=== PATIENT | male | born 1985 | race Caucasian/White ===

== ENCOUNTER 2016-10-05 01:51 | Emergency (ER) | payer MEDICAID ==
[~2016-10-05] VITALS: Ht 175.3 cm; Wt 96.0 kg
[~2016-10-05 01:51] MED LIST: ESCI10TA PO; OLAN15TA2 PO
[2016-10-05] MEDS ORDERED: OMEP20 PO ×2 (01:59→09:23)
[2016-10-05] MEDS ORDERED: ARIP15TA3 PO ×2 (01:59→09:23)
[2016-10-05 03:20] VITALS: BP 144/96
[2016-10-06] MEDS ORDERED: LORA10TA7 PO (08:40)
[2016-10-06] MEDS ORDERED: DSS100 PO (08:40)
[2016-10-06] MEDS ORDERED: ARIP15TA3 PO (08:40)
== END 2016-10-05 03:22 | disposition home or self-care (01) ==
LOC: EMS 01:52
DX: J31.0 Chronic rhinitis (principal); F20.9 Schizophrenia, unspecified; F17.210 Nicotine dependence, cigarettes, uncomplicated
CPT/HCPCS: 71020; 99284

== ENCOUNTER 2016-10-05 04:40 | Inpatient (IN) | payer MEDICAID ==
[~2016-10-05] VITALS: Ht 375.9 cm; Wt 96.8 kg
[~2016-10-05 04:40] MED LIST changes: +ARIP15TA3 PO; +OMEP20 PO
[2016-10-05] MEDS ORDERED: LORazepam 1 MG TABLET PO PRN (06:45)
[2016-10-05] MEDS ORDERED: ZOLPIDEM TARTRATE 10 MG TABLET PO PRN (06:45)
[2016-10-05] MEDS ORDERED: HALOPERIDOL 5 MG TABLET PO PRN (06:45)
[2016-10-05 07:00] VITALS: BP 123/78
[2016-10-05 08:57] VITALS: BP 127/85
[2016-10-05] MEDS ORDERED: BACITRACIN 28.4 GM OINTMENT TP PRN (09:15)
[2016-10-05] MEDS ORDERED: PETROLATUM,WHITE 71 GM JELLY TP PRN (09:15)
[2016-10-05] MEDS ORDERED: ACETAMINOPHEN 325 MG TABLET PO PRN (09:15)
[2016-10-05] MEDS ORDERED: IPRATROPIUM BROMIDE 0.5 MG/2.5 ML NEB SOLUTION NEB PRN (09:15)
[2016-10-05] MEDS ORDERED: IBUPROFEN 600 MG TABLET PO PRN (09:15)
[2016-10-05] MEDS ORDERED: MAGNESIUM HYDROXIDE SUSPENSION 30 ML UDCUP PO PRN (09:15)
[2016-10-05] MEDS ORDERED: MAG HYDROX/AL HYDROX/SIMETH ES 30 ML SUSPENSION UDCUP PO PRN (09:15)
[2016-10-05] MEDS ORDERED: CloNIDine HCL 0.1 MG TABLET PO PRN (09:15)
[2016-10-05] MEDS ORDERED: LOPERAMIDE HCL 2 MG CAPSULE PO PRN (09:15)
[2016-10-05] MEDS ORDERED: ALBUTEROL SULFATE 2.5 MG/0.5 ML NEB SOLUTION NEB PRN (09:15)
[2016-10-05] MEDS ORDERED: ALBUTEROL SULFATE HFA 90 MCG/PUFF 8 GM INHALER IH PRN (09:15)
[2016-10-05] MEDS ORDERED: BENZOCAINE/MENTHOL LOZENGE MM PRN (09:15)
[2016-10-05] MEDS ORDERED: ONDANSETRON HCL 4 MG TABLET PO PRN (09:15)
[2016-10-05] MEDS ORDERED: GuaiFENesin/D-METHORPHAN/PHENYLEPH 5 ML LIQUID ORAL.SYG PO PRN (09:15)
[2016-10-05] MEDS ORDERED: ARIP15TA3 PO (09:23)
[2016-10-05] MEDS ORDERED: OMEP20 PO (09:23)
[2016-10-05] MEDS ORDERED: ARIPiprazole 15 MG TABLET PO SCH ×2 (12:45→21:00)
[2016-10-05 16:11] VITALS: BP 131/80
[2016-10-06 05:35] VITALS: BP 127/79
[2016-10-06 08:29] LABS: BASOPHILS # (AUTO) 0.04 K/uL (0.00-0.20); BASOPHILS % (AUTO) 0.5 % (0.0-2.0); EOSINOPHILS # (AUTO) 0.42 K/uL (0.00-0.70); EOSINOPHILS % (AUTO) 5.97 % (1.0-6.0); HEMATOCRIT 48.5 % (41-53); HEMOGLOBIN 15.7 g/dL (13.5-17.5); LYMPHOCYTES # (AUTO) 2.3 K/uL (1.0-4.8); LYMPHOCYTES % (AUTO) 32.5 % (22.0-44.0); MEAN CORPUSCULAR HEMOGLOBIN 26.7 pg (26.0-34.0); MEAN CORPUSCULAR HGB CONC 32.4 G/dL (31.0-37.0); MEAN CORPUSCULAR VOLUME 83 fL (80-100); MONOCYTES # (AUTO) 0.5 K/uL (0.1-1.0); MONOCYTES % (AUTO) 7.8 % (2.0-9.0); NEUTROPHILS # (AUTO) 3.7 K/uL (1.8-7.7); NEUTROPHILS % (AUTO) 53.2 % (40.0-70.0); PLATELET COUNT (AUTO) 241 K/uL (150-450); RED BLOOD CELL COUNT(AUTO) 5.87 MIL/uL (4.50-5.90); RED CELL DISTRIBUTION WIDTH 13.2 % (11.5-14.5)
[2016-10-06] MEDS: DOCUSATE SODIUM 100 MG CAPSULE PO SCH ×2 (08:31→09:00)
[2016-10-06] MEDS: LORATADINE 10 MG TABLET PO SCH ×2 (08:31→09:00)
[2016-10-06 08:37] VITALS: BP 116/81
[2016-10-06] MEDS ORDERED: ARIP15TA3 PO (08:40)
[2016-10-06] MEDS ORDERED: DSS100 PO (08:40)
[2016-10-06] MEDS ORDERED: LORA10TA7 PO (08:40)
[2016-10-06] MEDS ORDERED: OMEPRAZOLE 20 MG CAPSULE PO SCH (09:00)
[2016-10-06 09:59] LABS: ALANINE AMINOTRANSFERASE 61 U/L (12-78); ALBUMIN 3.7 g/dL (3.4-5.0); ANION GAP 7 mmol/L (8-16); ASPARTATE AMINOTRANSFERASE 22 U/L (15-37); BILIRUBIN,TOTAL 0.6 mg/dL (0.1-1.0); CALCIUM, TOTAL 8.9 mg/dL (8.8-10.5); CARBON DIOXIDE 31 mmol/L (22-29); CHLORIDE 108 mmol/L (98-107); CHOL/HDL RATIO 4.3 (4.2-7.3); CREATININE 0.66 mg/dL (0.60-1.30); GLOMERULAR FILTR. RATE CALC > 60 mL/min (>60); PHOSPHORUS 3.4 mg/dL (2.5-4.9); POTASSIUM 4.5 mmol/L (3.5-5.1); SODIUM SERUM 146 mmol/L (136-145); UREA NITROGEN, BLOOD 10 mg/dL (7-18)
[2016-10-06 10:01] LABS: THYROID STIMULATING HORMONE < 0.01 uIU/mL (0.36-3.74)
== END 2016-10-06 09:50 | disposition home or self-care (01) | DRG 750 ==
LOC: B2S 06:54 → EDSTATUS 06:57
PROVIDERS: ADMIT Psychiatry & Neurology Psychiatry; ATTEND Psychiatry & Neurology Psychiatry
DX: F25.9 Schizoaffective disorder, unspecified (principal); F32.9 Major depressive disorder, single episode, unspecified; G47.00 Insomnia, unspecified; K21.9 Gastro-esophageal reflux disease without esophagitis; Z53.29 Procedure and treatment not carried out because of patient's decision for other reasons; F17.200 Nicotine dependence, unspecified, uncomplicated; F15.90 Other stimulant use, unspecified, uncomplicated; Z71.6 Tobacco abuse counseling; Z71.51 Drug abuse counseling and surveillance of drug abuser
CPT/HCPCS: 82306; 83735; 84100; 84443

== ENCOUNTER 2017-07-19 22:01 | Emergency (ER) | payer MEDICAID ==
[~2017-07-19] VITALS: Ht 175.3 cm; Wt 95.5 kg
[~2017-07-19 22:01] MED LIST changes: +ARIP15TA2 PO; -ARIP15TA3 PO; +DSS100 PO; -ESCI10TA PO; +LORA10TA7 PO; -OLAN15TA2 PO
[2017-07-19 23:49] LABS: BASOPHILS % (AUTO) 0.7 % (0.0-2.0); EOSINOPHILS % (AUTO) 0.7 % (1.0-6.0); HEMATOCRIT 45.8 % (41-53); HEMOGLOBIN 15.6 g/dL (13.5-17.5); LYMPHOCYTES # (AUTO) 1.3 K/uL (1.0-4.8); LYMPHOCYTES % (AUTO) 9.9 % (22.0-44.0); MEAN CORPUSCULAR HEMOGLOBIN 26.8 pg (26.0-34.0); MEAN CORPUSCULAR HGB CONC 34.2 G/dL (31.0-37.0); MEAN CORPUSCULAR VOLUME 79 fL (80-100); MONOCYTES # (AUTO) 0.9 K/uL (0.1-1.0); MONOCYTES % (AUTO) 7.4 % (2.0-9.0); NEUTROPHILS # (AUTO) 10.3 K/uL (1.8-7.7); NEUTROPHILS % (AUTO) 81.3 % (40.0-70.0); PLATELET COUNT (AUTO) 379 K/uL (150-450); RED BLOOD CELL COUNT(AUTO) 5.83 MIL/uL (4.50-5.90)
[2017-07-19 23:58] LABS: AMPHET/METH SCREEN,URINE POSITIVE (NEGATIVE); BARBITURATE SCREEN, URINE NEGATIVE (NEGATIVE); BENZODIAZEPINES SCREEN,URINE NEGATIVE (NEGATIVE); CANNABINOID SCREEN,URINE NEGATIVE (NEGATIVE); COCAINE SCREEN,URINE NEGATIVE (NEGATIVE); METHADONE SCREEN, URINE NEGATIVE (NEGATIVE); OPIATE SCREEN,URINE NEGATIVE (NEGATIVE)
[2017-07-19 23:58] LABS: ANION GAP 5 mmol/L (8-16); CALCIUM, TOTAL 9.6 mg/dL (8.8-10.5); CARBON DIOXIDE 32 mmol/L (22-29); CHLORIDE 106 mmol/L (98-107); CREATININE 1.08 mg/dL (0.60-1.30); GLOMERULAR FILTR. RATE CALC > 60 mL/min (>60); GLUCOSE,RANDOM 109 mg/dL (70-110); POTASSIUM 4.5 mmol/L (3.5-5.1); SODIUM SERUM 143 mmol/L (136-145); UREA NITROGEN, BLOOD 13 mg/dL (7-18)
[2017-07-20 00:02] LABS: PHENCYCLIDINE SCREEN,URINE NEGATIVE (NEGATIVE)
[2017-07-20 00:04] LABS: ALANINE AMINOTRANSFERASE 59 U/L (12-78); ALBUMIN 4.3 g/dL (3.4-5.0); ALKALINE PHOSPHATASE 167 U/L (46-116); ASPARTATE AMINOTRANSFERASE 28 U/L (15-37); BILIRUBIN,TOTAL 0.5 mg/dL (0.1-1.0); TOTAL PROTEIN, SERUM 7.9 g/dL (6.4-8.2)
[2017-07-20 01:21] VITALS: BP 125/74
== END 2017-07-20 02:48 | disposition home or self-care (01) ==
LOC: EMS 22:09
DX: F25.9 Schizoaffective disorder, unspecified (principal); F17.210 Nicotine dependence, cigarettes, uncomplicated
CPT/HCPCS: 36415; 80053; 80307; 85025; 99285; G0480

== ENCOUNTER 2017-11-03 14:56 | Inpatient (IN) | payer MEDICAID ==
[~2017-11-03] VITALS: Ht 172.7 cm; Wt 35.6 kg
[2017-11-03] MEDS ORDERED: BENZ1TAB10 PO (15:26)
[2017-11-03 16:13] LABS: BASOPHILS % (AUTO) 0.6 % (0.0-2.0); EOSINOPHILS % (AUTO) 2.3 % (1.0-6.0); HEMATOCRIT 44.1 % (41-53); HEMOGLOBIN 15.5 g/dL (13.5-17.5); LYMPHOCYTES # (AUTO) 1.5 K/uL (1.0-4.8); LYMPHOCYTES % (AUTO) 17.3 % (22.0-44.0); MEAN CORPUSCULAR HGB CONC 35.1 G/dL (31.0-37.0); MEAN CORPUSCULAR VOLUME 80 fL (80-100); MONOCYTES # (AUTO) 0.7 K/uL (0.1-1.0); MONOCYTES % (AUTO) 7.6 % (2.0-9.0); NEUTROPHILS # (AUTO) 6.4 K/uL (1.8-7.7); NEUTROPHILS % (AUTO) 72.2 % (40.0-70.0); PLATELET COUNT (AUTO) 322 K/uL (150-450); RED BLOOD CELL COUNT(AUTO) 5.53 MIL/uL (4.50-5.90); RED CELL DISTRIBUTION WIDTH 13.1 % (11.5-14.5)
[2017-11-03 16:20] LABS: ANION GAP 6 mmol/L (8-16); CALCIUM, TOTAL 8.4 mg/dL (8.8-10.5); CARBON DIOXIDE 32 mmol/L (22-29); CHLORIDE 105 mmol/L (98-107); CREATININE 0.89 mg/dL (0.60-1.30); GLOMERULAR FILTR. RATE CALC > 60 mL/min (>60); GLUCOSE,RANDOM 77 mg/dL (70-110); POTASSIUM 3.5 mmol/L (3.5-5.1); SODIUM SERUM 143 mmol/L (136-145); UREA NITROGEN, BLOOD 12 mg/dL (7-18)
[2017-11-03 16:27] LABS: ALANINE AMINOTRANSFERASE 47 U/L (12-78); ALBUMIN 4.2 g/dL (3.4-5.0); ALKALINE PHOSPHATASE 137 U/L (46-116); ASPARTATE AMINOTRANSFERASE 22 U/L (15-37); BILIRUBIN,TOTAL 0.9 mg/dL (0.1-1.0); TOTAL PROTEIN, SERUM 7.5 g/dL (6.4-8.2)
[2017-11-03 18:40] LABS: AMPHET/METH SCREEN,URINE POSITIVE (NEGATIVE); BARBITURATE SCREEN, URINE NEGATIVE (NEGATIVE); BENZODIAZEPINES SCREEN,URINE NEGATIVE (NEGATIVE); CANNABINOID SCREEN,URINE NEGATIVE (NEGATIVE); COCAINE SCREEN,URINE NEGATIVE (NEGATIVE); METHADONE SCREEN, URINE NEGATIVE (NEGATIVE); OPIATE SCREEN,URINE NEGATIVE (NEGATIVE); PHENCYCLIDINE SCREEN,URINE NEGATIVE (NEGATIVE)
[2017-11-03] MEDS ORDERED: ZOLPIDEM TARTRATE 10 MG TABLET PO PRN (20:30)
[2017-11-03] MEDS ORDERED: HALOPERIDOL 5 MG TABLET PO PRN (20:30)
[2017-11-03] MEDS: LORazepam 2 MG TABLET PO PRN (20:40)
[2017-11-03 20:46] LABS: HEMOGLOBIN A1C 5.7 % (4.5-6.2)
[2017-11-03 20:59] LABS: CHOL/HDL RATIO 2.9 (4.2-7.3); CHOLESTEROL 148 mg/dL (131-200); FREE T4 (FREE THYROXINE) 1.41 ng/dL (0.76-1.46); HDL CHOLESTEROL 51 mg/dL (40-60); LDL CHOL (CALC.) 79 mg/dL (0-130); TRIGLYCERIDES 90 mg/dL (15-150)
[2017-11-03 21:26] LABS: THYROID STIMULATING HORMONE < 0.01 uIU/mL (0.36-3.74)
[2017-11-03 22:00] VITALS: BP 94/53
[2017-11-03] MEDS ORDERED: ACETAMINOPHEN 325 MG TABLET PO PRN (22:30)
[2017-11-03] MEDS ORDERED: ALBUTEROL SULFATE HFA 90 MCG/PUFF 8 GM INHALER IH PRN (22:30)
[2017-11-03] MEDS ORDERED: LOPERAMIDE HCL 2 MG CAPSULE PO PRN (22:30)
[2017-11-03] MEDS ORDERED: BACITRACIN 28.4 GM OINTMENT TP PRN (22:30)
[2017-11-03] MEDS ORDERED: ONDANSETRON HCL 4 MG TABLET PO PRN (22:30)
[2017-11-03] MEDS ORDERED: MAG HYDROX/AL HYDROX/SIMETH ES 30 ML SUSPENSION UDCUP PO PRN (22:30)
[2017-11-03] MEDS ORDERED: IBUPROFEN 600 MG TABLET PO PRN (22:30)
[2017-11-03] MEDS ORDERED: CloNIDine HCL 0.1 MG TABLET PO PRN (22:30)
[2017-11-03] MEDS ORDERED: MAGNESIUM HYDROXIDE SUSPENSION 30 ML UDCUP PO PRN (22:30)
[2017-11-03] MEDS ORDERED: BENZOCAINE/MENTHOL LOZENGE MM PRN (22:30)
[2017-11-03] MEDS ORDERED: PETROLATUM,WHITE 71 GM JELLY TP PRN (22:30)
[2017-11-04 04:00] VITALS: BP 128/89
[2017-11-04] MEDS ORDERED: OMEPRAZOLE 20 MG CAPSULE PO SCH (09:00)
[2017-11-04] MEDS ORDERED: DOCUSATE SODIUM 100 MG CAPSULE PO SCH (09:00)
[2017-11-04 09:02] VITALS: BP 114/85
[2017-11-04] MEDS: CHOLECALCIFEROL (VIT D3) 1,000 UNITS TABLET PO SCH (10:46)
[2017-11-04] MEDS: LORazepam 2 MG TABLET PO PRN (17:03)
[2017-11-04 17:06] VITALS: BP 120/79
[2017-11-05 08:30] VITALS: BP 114/57
[2017-11-05] MEDS: CHOLECALCIFEROL (VIT D3) 1,000 UNITS TABLET PO SCH (08:55)
[2017-11-05] MEDS ORDERED: VITAD1000 PO (14:49)
== END 2017-11-05 15:30 | disposition home or self-care (01) | DRG 750 ==
LOC: EMS 14:57 → 3EI 21:28
PROVIDERS: ADMIT Psychiatry & Neurology Psychiatry; ATTEND Psychiatry & Neurology Psychiatry
DX: F25.9 Schizoaffective disorder, unspecified (principal); R45.851 Suicidal ideations; K21.9 Gastro-esophageal reflux disease without esophagitis; F15.10 Other stimulant abuse, uncomplicated; F41.9 Anxiety disorder, unspecified; G47.00 Insomnia, unspecified; F17.210 Nicotine dependence, cigarettes, uncomplicated; Z71.6 Tobacco abuse counseling
CPT/HCPCS: 83036; 84439; 84443; 99285; G0480

== ENCOUNTER 2017-12-25 17:39 | Emergency (ER) | payer MEDICAID ==
[~2017-12-25 17:39] MED LIST changes: -ARIP15TA2 PO; -DSS100 PO; -LORA10TA7 PO; -OMEP20 PO; +VITAD1000 PO
[2017-12-25] MEDS ORDERED: PALI39DI IM (17:42)
== END 2017-12-25 22:08 | disposition left against medical advice (07) ==
LOC: EMS 17:41
DX: R05 Cough (principal); R06.02 Shortness of breath; F17.210 Nicotine dependence, cigarettes, uncomplicated; F19.90 Other psychoactive substance use, unspecified, uncomplicated; Z53.21 Procedure and treatment not carried out due to patient leaving prior to being seen by health care provider

== ENCOUNTER 2020-06-07 02:17 | Emergency (ER) | payer MEDICAID ==
[~2020-06-07] VITALS: Ht 172.7 cm; Wt 68.2 kg
[~2020-06-07 02:17] MED LIST changes: +PALI39DI IM; -VITAD1000 PO
[2020-06-07 04:36] VITALS: BP 131/94
[2020-06-07] MEDS ORDERED: BusPIRone HCL 15 MG TABLET PO ONE (04:45)
[2020-06-07] MEDS ORDERED: ARIPiprazole 10 MG TABLET PO ONE (04:45)
== END 2020-06-07 05:19 | disposition home or self-care (01) ==
LOC: EMS 02:18
DX: F20.0 Paranoid schizophrenia (principal); F17.210 Nicotine dependence, cigarettes, uncomplicated; F41.9 Anxiety disorder, unspecified; F15.90 Other stimulant use, unspecified, uncomplicated
CPT/HCPCS: Z7502; Z7610

== ENCOUNTER 2020-11-08 18:17 | Inpatient (IN) | payer MEDICAID ==
[~2020-11-08] VITALS: Ht 170.2 cm; Wt 61.5 kg
[2020-11-08 19:54] LABS: BASOPHILS % (AUTO) 0.9 % (0.0-2.0); EOSINOPHILS % (AUTO) 2.6 % (1.0-6.0); HEMATOCRIT 39.3 % (41-53); HEMOGLOBIN 13.2 g/dL (13.5-17.5); LYMPHOCYTES # (AUTO) 1.7 K/uL (1.0-4.8); MEAN CORPUSCULAR HEMOGLOBIN 28.7 pg (26.0-34.0); MEAN CORPUSCULAR HGB CONC 33.6 G/dL (31.0-37.0); MEAN CORPUSCULAR VOLUME 85 fL (80-100); MONOCYTES # (AUTO) 0.5 K/uL (0.1-1.0); MONOCYTES % (AUTO) 7.9 % (2.0-9.0); NEUTROPHILS # (AUTO) 4.4 K/uL (1.8-7.7); NEUTROPHILS % (AUTO) 63.6 % (40.0-70.0); PLATELET COUNT (AUTO) 276 K/uL (150-450); RED BLOOD CELL COUNT(AUTO) 4.61 MIL/uL (4.50-5.90); RED CELL DISTRIBUTION WIDTH 13.1 % (11.5-14.5)
[2020-11-08] MEDS ORDERED: LORazepam 2 MG/ML VIAL IM ONE (20:00)
[2020-11-08] MEDS ORDERED: HALOPERIDOL LACTATE 5 MG/ML VIAL IM ONE (20:00)
[2020-11-08] MEDS ORDERED: DiphenhydrAMINE HCL 50 MG/ML VIAL IM ONE (20:00)
[2020-11-08 20:03] LABS: ANION GAP 5 mmol/L (8-16); CALCIUM, TOTAL 8.8 mg/dL (8.8-10.5); CARBON DIOXIDE 32 mmol/L (22-29); CHLORIDE 106 mmol/L (98-107); CREATININE 0.89 mg/dL (0.60-1.30); GLOMERULAR FILTR. RATE CALC > 60 mL/min (>60); GLUCOSE,RANDOM 101 mg/dL (70-110); POTASSIUM 4.1 mmol/L (3.5-5.1); SODIUM SERUM 143 mmol/L (136-145); UREA NITROGEN, BLOOD 21 mg/dL (7-18)
[2020-11-08 20:09] LABS: ALANINE AMINOTRANSFERASE 44 U/L (12-78); ALKALINE PHOSPHATASE 101 U/L (46-116); ASPARTATE AMINOTRANSFERASE 37 U/L (15-37); BILIRUBIN,TOTAL 0.4 mg/dL (0.1-1.0)
[2020-11-08] MEDS ORDERED: HALOPERIDOL 5 MG TABLET PO PRN (20:15)
[2020-11-08] MEDS ORDERED: ZOLPIDEM TARTRATE 10 MG TABLET PO PRN (20:15)
[2020-11-08 20:47] LABS: COVID AG,FIA SOURCE NASOPHARYNGEAL
[2020-11-08 22:25] VITALS: BP 104/79
[2020-11-08] MEDS ORDERED: PNEUMOCOCCAL VACCINE POLYVALENT 0.5 ML VIAL [PPSV23] IM. ONE (23:15)
[2020-11-09 00:26] VITALS: BP 106/72
[2020-11-09] MEDS ORDERED: IBUPROFEN 600 MG TABLET PO PRN (08:00)
[2020-11-09] MEDS ORDERED: BACITRACIN 28 GM OINTMENT TP PRN (08:00)
[2020-11-09] MEDS ORDERED: LOPERAMIDE HCL 2 MG CAPSULE PO PRN (08:00)
[2020-11-09] MEDS ORDERED: DOCUSATE SODIUM 100 MG CAPSULE PO PRN (08:00)
[2020-11-09] MEDS ORDERED: ACETAMINOPHEN 325 MG TABLET PO PRN (08:00)
[2020-11-09] MEDS ORDERED: MAG HYDROX/AL HYDROX/SIMETH ES 30 ML SUSPENSION UDCUP PO PRN (08:00)
[2020-11-09] MEDS ORDERED: CloNIDine HCL 0.1 MG TABLET PO PRN (08:00)
[2020-11-09] MEDS ORDERED: MAGNESIUM HYDROXIDE SUSPENSION 30 ML UDCUP PO PRN (08:00)
[2020-11-09] MEDS ORDERED: ONDANSETRON HCL 4 MG TABLET PO PRN (08:00)
[2020-11-09] MEDS ORDERED: OMEPRAZOLE 20 MG CAPSULE PO PRN (08:00)
[2020-11-09] MEDS ORDERED: ALBUTEROL SULFATE HFA 90 MCG/PUFF 8 GM INHALER IH PRN (08:00)
[2020-11-09] MEDS ORDERED: BENZOCAINE/MENTHOL LOZENGE PO PRN (08:00)
[2020-11-09] MEDS ORDERED: PETROLATUM,WHITE 28 GM JELLY TP PRN (08:00)
[2020-11-09 19:32] VITALS: BP 100/62
[2020-11-09] MEDS: OLANZapine 7.5 MG TABLET PO SCH (22:46)
[2020-11-10 05:55] VITALS: BP 147/103
[2020-11-10 09:18] VITALS: BP 95/63
[2020-11-10 16:28] VITALS: BP 107/62
[2020-11-10] MEDS: OLANZapine 7.5 MG TABLET PO SCH (20:32)
[2020-11-10] MEDS: LORazepam 2 MG TABLET PO PRN (20:32)
[2020-11-11 04:25] VITALS: BP 104/61
[2020-11-11 08:42] VITALS: BP 108/70
[2020-11-11 16:20] VITALS: BP 108/60
[2020-11-11] MEDS: LORazepam 2 MG TABLET PO PRN (16:42)
[2020-11-11] MEDS: OLANZapine 7.5 MG TABLET PO SCH (20:38)
[2020-11-12 00:23] VITALS: BP 110/77
[2020-11-12 07:51] LABS: HEMOGLOBIN A1C 5.1 % (3.8-5.6)
[2020-11-12 08:10] LABS: CHOL/HDL RATIO 2.5 (4.2-7.3); FREE T4 (FREE THYROXINE) 0.96 ng/dL (0.76-1.46); THYROID STIMULATING HORMONE 0.55 uIU/mL (0.36-3.74)
[2020-11-12 08:50] VITALS: BP 107/58
[2020-11-12] MEDS: LORazepam 2 MG TABLET PO PRN (16:49)
[2020-11-12 20:19] VITALS: BP 102/61
[2020-11-12] MEDS: OLANZapine 7.5 MG TABLET PO SCH (20:21)
[2020-11-13 00:38] VITALS: BP 109/79
[2020-11-13 08:49] VITALS: BP 123/72
[2020-11-13] MEDS: LORazepam 2 MG TABLET PO PRN (09:53)
[2020-11-13 16:12] VITALS: BP 107/78
[2020-11-13] MEDS: OLANZapine 7.5 MG TABLET PO SCH (20:41)
[2020-11-14 05:15] VITALS: BP 110/71
[2020-11-14 09:00] VITALS: BP 114/73
[2020-11-14 16:32] VITALS: BP 112/76
[2020-11-14] MEDS: OLANZapine 7.5 MG TABLET PO SCH (20:44)
[2020-11-15 05:21] VITALS: BP 115/74
[2020-11-15 08:00] VITALS: BP 111/78
[2020-11-15 16:14] VITALS: BP 125/87
[2020-11-15] MEDS ORDERED: OLAN7.5T22 PO (17:18)
== END 2020-11-15 17:00 | disposition home or self-care (01) | DRG 750 ==
LOC: EMS 18:19 → B3A 21:18
PROVIDERS: ADMIT Psychiatry & Neurology Psychiatry; ATTEND Psychiatry & Neurology Psychiatry
DX: F25.9 Schizoaffective disorder, unspecified (principal); F10.10 Alcohol abuse, uncomplicated; F17.210 Nicotine dependence, cigarettes, uncomplicated; Z20.822 Contact with and (suspected) exposure to COVID-19; F41.9 Anxiety disorder, unspecified; G47.00 Insomnia, unspecified; F15.10 Other stimulant abuse, uncomplicated
CPT/HCPCS: 80053; 80061; 83036; 84439; 84443; 85025; 99285; G0480; J1200; J1630; J2060

== ENCOUNTER 2021-09-06 20:13 | Emergency (ER) | payer MEDICAID ==
[~2021-09-06] VITALS: Ht 167.6 cm; Wt 70.0 kg
[~2021-09-06 20:13] MED LIST changes: +OLAN7.5T22 PO; -PALI39DI IM
[2021-09-06 20:26] VITALS: BP 114/83
== END 2021-09-06 21:42 | disposition left against medical advice (07) ==
LOC: EMS 20:14
DX: R68.2 Dry mouth, unspecified (principal); Z53.21 Procedure and treatment not carried out due to patient leaving prior to being seen by health care provider